=== PATIENT | female | born 1980 | race Asian ===

== ENCOUNTER 2017-12-01 19:38 | Emergency (ER) | payer OTHER ==
[~2017-12-01] VITALS: Ht 162.6 cm; Wt 79.5 kg
[~2017-12-01 19:38] MED LIST: ACET-1600 PO; AMOX1TAB12 PO; IBUP-1222 PO
[2017-12-01] MEDS ORDERED: ONDANSETRON 2MG/ML, 2ML ONE (20:11)
[2017-12-01] MEDS ORDERED: FAMOTIDINE 20 MG/2 ML ONE (20:11)
[2017-12-01 20:22] LABS: BASOPHILS # (AUTO) 0.04 x10^3/uL (0-0.1); BASOPHILS % (AUTO) 0 % (0-1); EOSINOPHILS # (AUTO) 0.07 x10^3/uL (0-0.4); EOSINOPHILS % (AUTO) 1 % (1-7); LYMPHOCYTES # (AUTO) 1.28 x10^3/uL (1-3.4); LYMPHOCYTES % (AUTO) 11 % (22-44); MD NO; MEAN CORPUSCULAR HEMOGLOBIN 31.6 pg (27.0-34.8); MEAN CORPUSCULAR HGB CONC 33.7 g/dL (32.4-35.8); MEAN CORPUSCULAR VOLUME 93.6 fL (80-100); MEAN PLATELET VOLUME 8.9 fL (7.4-10.4); MONOCYTES # (AUTO) 0.49 x10^3/uL (0.2-0.8); MONOCYTES % (AUTO) 4 % (2-9); NEUTROPHILS # (AUTO) 9.94 x10^3/uL (1.8-6.8); NEUTROPHILS % (AUTO) 84 % (42-75); PLATELET COUNT 228 x10^3/uL (130-400); RED CELL DISTRIBUTION WIDTH 12.9 % (9.6-15.2)
[2017-12-01 20:29] LABS: ALANINE AMINOTRANSFERASE 31 U/L (12-78); ALBUMIN 4.2 g/dL (3.4-5.0); ANION GAP 11 mmol/L (5-15); CALCIUM 8.4 mg/dL (8.5-10.1); CHLORIDE 106 mmol/L (98-107); CREATININE 0.65 mg/dL (0.55-1.02)
[2017-12-01] MEDS ORDERED: SODIUM CHLORIDE 0.9% 1,000ML IVBOLUS ONE (20:30)
[2017-12-01] MEDS ORDERED: FAMOTIDINE 20 MG/2 ML IVP ONE (20:30)
[2017-12-01] MEDS ORDERED: SODIUM CHLORIDE FLUSH 10ML SYR IVF ONE (20:30)
[2017-12-01] MEDS ORDERED: ONDANSETRON 2MG/ML, 2ML IVPush ONE (20:30)
[2017-12-01 20:34] LABS: ALKALINE PHOSPHATASE 54 U/L (45-117); BILIRUBIN,TOTAL 1.2 mg/dL (0.2-1.0)
[2017-12-01 20:45] LABS: CULTURE INDICATED? YES; MICROSCOPIC INDICATED
[2017-12-01] MEDS ORDERED: BIRTH CONTROL (22:21)
[2017-12-01 22:27] VITALS: BP 126/86
== END 2017-12-01 22:37 | disposition home or self-care (01) ==
LOC: ED 19:56
DX: R10.13 Epigastric pain (principal); K80.70 Calculus of gallbladder and bile duct without cholecystitis without obstruction; N30.00 Acute cystitis without hematuria
CPT/HCPCS: 36415; 76700; 80053; 81001; 83690; 84703; 85025; 87086; 96374; 96375; 99285; J2405; J7030; S0028

== ENCOUNTER 2018-11-02 20:08 | Emergency (ER) | payer OTHER ==
[~2018-11-02] VITALS: Ht 162.6 cm; Wt 80.0 kg
[~2018-11-02 20:08] MED LIST changes: +BIRTH CONTROL
[2018-11-02 20:14] VITALS: BP 163/99
[2018-11-02] MEDS ORDERED: DEXAMETHASONE 1 MG TABLET PO STA (21:28)
[2018-11-02] MEDS ORDERED: IBUPROFEN 200 MG TABLET PO ONE (21:30)
[2018-11-02] MEDS ORDERED: IBUPROFEN 200 MG TABLET ONE (21:32)
[2018-11-02] MEDS ORDERED: DEXAMETHASONE 4 MG TABLET ONE (21:32)
== END 2018-11-02 21:51 | disposition home or self-care (01) ==
LOC: ED 21:28
DX: J20.9 Acute bronchitis, unspecified (principal); J02.8 Acute pharyngitis due to other specified organisms; H10.33 Unspecified acute conjunctivitis, bilateral
CPT/HCPCS: 71046; 99283